=== PATIENT | female | born 1955 | race Caucasian/White ===

== ENCOUNTER 2021-03-06 15:35 | Outpatient (CLI) | payer BC | END 2021-03-06 15:36 | disposition home or self-care (01) | LOC: BICRAD 15:35 | PROVIDERS: ATTEND Family Medicine | DX: M79.671 Pain in right foot (principal); M19.071 Primary osteoarthritis, right ankle and foot; M25.871 Other specified joint disorders, right ankle and foot ==

== ENCOUNTER 2022-08-28 14:33 | Outpatient (CLI) | payer BC ==
[2022-08-28 15:54] LABS: Hemoglobin 11.3 g/dL (12.0-15.5); Mean Corpuscular HGB CONC 32.9 g/dL (32.0-36.0); Mean Corpuscular Hemoglobin 31.3 pg (27.0-33.0); Mean Platelet Volume 10.5 fl (7.4-10.4); Platelet Count 253 10x3/uL (150-450); RBC Distribution Width 12.1 % (11.5-14.5); Red Blood Cell (RBC) Count 3.61 10x6/uL (3.90-5.03); White Blood Cell (WBC) Count 7.3 10x3/uL (3.5-10.5)
[2022-08-28 16:10] LABS: Anion Gap 15 mmol/L (10-20); BUN (Urea Nitrogen) 15 mg/dL (9.8-20.1); Calc. Creatinine Clearance 0 mL/min (70-130); Calcium 9.5 mg/dL (7.8-10.44); Carbon Dioxide 29 mmol/L (23-31); Chloride 106 mmol/L (98-107); Estimated GFR 74; Glucose 118 mg/dL (80-115); Potassium 4.7 mmol/L (3.5-5.1); Sodium 145 mmol/L (136-145)
== END 2022-08-28 14:34 | disposition home or self-care (01) ==
LOC: LABBT 14:33
PROVIDERS: ATTEND Internal Medicine Cardiovascular Disease
DX: Z01.812 Encounter for preprocedural laboratory examination (principal); I82.409 Acute embolism and thrombosis of unspecified deep veins of unspecified lower extremity
CPT/HCPCS: 80048; 85027

== ENCOUNTER 2022-09-01 06:46 | Day surgery (SDC) | payer BC ==
[2022-08-29 10:44] VITALS: BMI 28.9
[2022-09-01] MEDS ORDERED: Heparin 10,000 UNITS/ 10 ML VIAL ONE (06:52)
[2022-09-01] MEDS ORDERED: FENTANYL 50 MCG/ML 1 ML VIAL ONE (08:30)
[2022-09-01] MEDS ORDERED: PROPOFOL 200 MG/20 ML VIAL ONE (08:37)
[2022-09-01] MEDS ORDERED: Lidocaine 1% (PF) 30 ML VIAL ONE (09:04)
[2022-09-01] MEDS ORDERED: Isoproterenol 0.2 MG/1 ML AMP ONE (09:23)
== END 2022-09-01 15:43 | disposition home or self-care (01) ==
LOC: SDC 06:46
PROVIDERS: ATTEND Internal Medicine Cardiovascular Disease
DX: I47.1 Supraventricular tachycardia (principal); I49.1 Atrial premature depolarization; Z88.5 Allergy status to narcotic agent; Z88.6 Allergy status to analgesic agent; Z88.8 Allergy status to other drugs, medicaments and biological substances; Z91.013 Allergy to seafood; Z91.040 Latex allergy status; Z91.09 Other allergy status, other than to drugs and biological substances; Z87.891 Personal history of nicotine dependence; Z79.899 Other long term (current) drug therapy
CPT/HCPCS: 93005; 93623; 93653; 93655; C1730; C1732; C1760; C1769; C1894; J1644; J2001; J2704; J3010